=== PATIENT | female | born 1945 | race Caucasian/White ===

== ENCOUNTER 2021-11-24 12:17 | Emergency (ER) | payer OTHER ==
[~2021-11-24] VITALS: Ht 162.6 cm; Wt 63.5 kg
[2021-11-24] MEDS ORDERED: ACE3T PO (16:52)
[2021-11-24] MEDS ORDERED: ONDANSETRON HCL 4 MG/2 ML VIAL IM ONE (17:00)
[2021-11-24] MEDS ORDERED: MORPHINE SULFATE INJ 2 MG/ml SYRG IM ONE (17:00)
[2021-11-24 17:13] VITALS: BP 112/63
== END 2021-11-24 19:59 | disposition home or self-care (01) ==
LOC: EDBD 12:17 → ER 12:17
DX: S39.012A Strain of muscle, fascia and tendon of lower back, initial encounter (principal); M47.816 Spondylosis without myelopathy or radiculopathy, lumbar region; I12.9 Hypertensive chronic kidney disease with stage 1 through stage 4 chronic kidney disease, or unspecified chronic kidney disease; N18.9 Chronic kidney disease, unspecified; J44.9 Chronic obstructive pulmonary disease, unspecified; E03.9 Hypothyroidism, unspecified; Z90.49 Acquired absence of other specified parts of digestive tract; Z90.710 Acquired absence of both cervix and uterus; Z79.899 Other long term (current) drug therapy; X50.1XXA Overexertion from prolonged static or awkward postures, initial encounter; Y93.89 Activity, other specified; Y92.89 Other specified places as the place of occurrence of the external cause; Y99.8 Other external cause status
CPT/HCPCS: 72100; 93971; 96372; 99284; J2270; J2405